=== PATIENT | female | born 1985 | race Caucasian/White ===

== ENCOUNTER 2016-04-14 23:54 | Emergency (ER) | payer MEDICAID, OTHER ==
[~2016-04-14] VITALS: Ht 160 cm; Wt 79.2 kg
[~2016-04-14 23:54] MED LIST: ALBU8I INH; AUGM875T PO; CLON.5 PO; ERYT1O LEFT EYE; ZOLO50TA PO
[2016-04-15 00:18] VITALS: BP 150/96; PULSE 102; RESP 18; TEMP 98.7; O2SAT 99
[2016-04-15] MEDS ORDERED: CLON.5 PO (00:40)
[2016-04-15 00:41] VITALS: BP 148/90; PULSE 92; RESP 18; TEMP 98.7; O2SAT 99
[2016-04-15 00:58] LABS: BLOOD, URINE TRACE (NEG); GLUCOSE,URINE NEG (NEG); KETONE, URINE NEG (NEG); NITRITE,URINE NEG (NEG)
[2016-04-15 01:03] LABS: URINE COLOR YELLOW (YELLW/STRAW); WBC, URINE 0-2 /hpf (0-5)
[2016-04-15 01:04] LABS: BACTERIA, URINE RARE /hpf; COMMENT (UR) CULT NOT INDICATED; CULTURE IF INDICATED CULT NOT INDICATED
[2016-04-15 02:30] VITALS: BP 146/86; PULSE 92; RESP 18; O2SAT 98
[2016-04-15] MEDS ORDERED: KETOROLAC TROMETHAMINE 60 MG/2 ML (IM) VIAL IM ONE (03:30)
--- NOTE | 2016-04-15 03:49 | PD ---
HPI Chief Complaint: Abdominal Pain Time Seen by Provider: 03:17 Travel History International Travel<30 days: No Contact w/Intl Traveler<30days: No Traveled to known affect area: No History of Present Illness HPI The patient is a 31-year-old female who complains of a fairly sudden onset of left pelvic pain 2 days ago. The pain subsequently spread slightly to the right side. She denies any nausea, vomiting or diarrhea. She denies any fever. She has been taking Motrin 600 mg 3 times daily without relief. She states she is starting to get some yeast infections lately. PFS Past Medical History Anxiety: Yes Depression: Yes Diminished Hearing: No Tetanus Vaccination: < 5 Years Influenza Vaccination: No ?: Unknown LMP: 03/24/16 Past Surgical History Section: Yes Social History Alcohol Use: Yes (SOCIAL) Tobacco Use: Yes (03/21 PPD) Substance Use: No Allergies-Medications (Allergen,Severity, Reaction): Coded Allergies: Biaxin (Verified Allergy, Unknown, 04/15/16) Reported Meds & Prescriptions Reported Meds & Active Scripts Active Reported Klonopin (Clonazepam) 0.5 Mg Tab 0.5 Mg PO BID Review of Systems Except as stated in HPI: all other systems reviewed are Neg Physical Exam Narrative GENERAL: The patient is alert, anxious, in moderate apparent distress with her left pelvic pain. Her vital signs initially showed 150/96 blood pressure with a heart rate of 102 and repeat is 148/90 blood pressure with a heart rate of 92. The rest her vital signs are normal. SKIN: Warm and dry. HEAD: Atraumatic. Normocephalic. EYES: Pupils equal and round. No scleral icterus. No injection or drainage. ENT: No nasal bleeding or discharge. Mucous membranes pink and moist. NECK: Trachea midline. No JVD. CARDIOVASCULAR: Regular rate and rhythm. No murmur appreciated. RESPIRATORY: No accessory muscle use. Clear to auscultation. Breath sounds equal bilaterally. GASTROINTESTINAL: Abdomen soft, non-tender, nondistended. Hepatic and splenic margins not palpable. MUSCULOSKELETAL: No obvious deformities. No clubbing. No cyanosis. No edema. NEUROLOGICAL: Awake and alert. No obvious cranial nerve deficits. Motor grossly within normal limits. Normal speech. PSYCHIATRIC: Appropriate mood and affect; insight and judgment normal. GENITOURINARY: Normal external genitalia without lesions or erythema. Vaginal vault without blood but there is a copious, pure white, [id number] drainage. Cervical os was closed with clear drainage. There is slight cervical motion tenderness and movement of the cervix reproduces her pain.. Uterus nontender and nonenlarged. Bilateral adnexa tender without masses. The left adnexa is muscle more tender than the right. Data Data Last Documented VS Vital Signs Date Time Temp Pulse Resp B/P Pulse Ox O2 Delivery O2 Flow Rate FiO2 04/15/16 02:30 92 18 146/86 98 Room Air 04/15/16 00:41 98.7 Orders Urinalysis - C+S If Indicated (04/15/16 00:43) Ed Urine Pregnancytest Poc (04/15/16 00:43) Ketorolac Inj (Toradol Inj) (04/15/16 03:30) Wet Prep Profile (04/15/16 03:49) Labs Laboratory Tests Test 04/15/16 00:50 Urine Color YELLOW Urine Turbidity SLIGHT Urine pH 7.0 Urine Specific [place] 1.008 Urine Protein NEG mg/dL Urine Glucose (UA) NEG mg/dL Urine Ketones NEG mg/dL Urine Occult Blood TRACE Urine Nitrite NEG Urine Bilirubin NEG Urine Leukocyte Esterase NEG Urine RBC 3-5 /hpf Urine WBC 0-2 /hpf Urine Squamous Epithelial 6-8 /hpf Cells Urine Amorphous Sediment MOD Urine Bacteria RARE /hpf Microscopic Urinalysis Comment CULT NOT INDICATED MDM Medical Decision Making Medical Screen Exam Complete: Yes Emergency Medical Condition: Yes Medical Record Reviewed: Yes Interpretation(s) The urine test is negative. Differential Diagnosis Ovarian cyst, vaginal moniliasis, ectopic pregnancyunlikely, PID, urinary infection Narrative Course The patient likely has a ruptured ovarian cyst. The timing is suggestive of this, sudden onset with slight spread from the left to the right pelvis. No associated fever, nausea, vomiting, diarrhea, dysuria, frequency or urgency. She may also have vaginal moniliasis. Diagnosis Primary Impression: Ruptured ovarian cyst Additional Instructions: The yeast medication is taken one pill once and this should get rid of it. You have several refills for the future if needed. Do not drink alcohol or drive on the Percocet. 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 Med/Other Pt SpecificInfo: Prescription(s) given Scripts Fluconazole (Diflucan)150 Mg Yyc170 Mg PO ONCE #1 TAB Ref 0 Prov:Ricki Tejeda MD 04/15/16 Oxycodone-Acetaminophen (Percocet)5-325 mg Tab1-2 Tab PO Q4H PRN (PAIN) #30 TAB Ref 0 Prov:Ricki Tejeda MD 04/15/16 Disposition: 01 DISCHARGE HOME Condition: Stable Ricki Tejeda MD Apr 15, 2016 03:49
[2016-04-15] MEDS ORDERED: DIFL150T PO (03:55)
[2016-04-15] MEDS ORDERED: PERC5TAB12 PO (03:55)
[2016-04-15 04:07] VITALS: BP 148/84; PULSE 88; RESP 18; O2SAT 98
== END 2016-04-15 04:08 | disposition home or self-care (01) ==
LOC: PHED 23:54
DX: N83.202 Unspecified ovarian cyst, left side (principal); R10.2 Pelvic and perineal pain; F17.210 Nicotine dependence, cigarettes, uncomplicated
CPT/HCPCS: 81001; 84703; 87210; 96372; 99284; J1885